=== PATIENT | female | born 1970 | race Two or more races ===

== ENCOUNTER 2017-03-22 19:10 | Emergency (ER) | payer SELFPAY ==
[~2017-03-22] VITALS: Ht 157.5 cm; Wt 63.5 kg
[~2017-03-22 19:10] MED LIST: BISA5TAB10 PO
[2017-03-22] MEDS ORDERED: DICYCLOMINE HCL 10 MG/5 ML UDC LIQ PO ONE (20:15)
[2017-03-22] MEDS ORDERED: PANTOPRAZOLE SODIUM 40 MG TABLET.DR PO ONE ×2 (20:15→20:35)
[2017-03-22] MEDS ORDERED: MAG HYDROX/AL HYDROX/SIMETH 30 ML LIQUID UDC PO ONE (20:15)
[2017-03-22] MEDS ORDERED: SIMETHICONE 80 MG TAB.CHEW PO ONE (20:15)
[2017-03-22] MEDS ORDERED: LIDOCAINE VISCUS 2% 15 ML UDC MM ONE (20:15)
[2017-03-22] MEDS ORDERED: MAG HYDROX/AL HYDROX/SIMETH 30 ML LIQUID UDC ONE (20:33)
[2017-03-22] MEDS ORDERED: DICYCLOMINE HCL 10 MG/5 ML UDC LIQ ONE (20:34)
[2017-03-22 20:36] LABS: BASOPHILS # (AUTO) 0.1 K/uL (0.0-8.0); BASOPHILS % (AUTO) 0.6 % (0.0-2.0); EOSINOPHILS # (AUTO) 0.1 K/uL (0.0-0.7); EOSINOPHILS % (AUTO) 1.1 % (0.0-7.0); HEMATOCRIT 39.5 % (37-47); HEMOGLOBIN 13.4 G/DL (12.0-16.0); LYMPHOCYTES # (AUTO) 2.8 K/UL (0.8-4.8); MEAN CORPUSCULAR HEMOGLOBIN 29.6 UUG (27.0-31.0); MEAN CORPUSCULAR HGB CONC 34 g/dL (32.0-37.0); MEAN CORPUSCULAR VOLUME 86.7 FL (81.0-99.0); MONOCYTES # (AUTO) 0.7 K/UL (0.1-1.30); MONOCYTES % (AUTO) 6.6 % (0.0-11.0); NEUTROPHILS # (AUTO) 6.3 K/UL (1.8-8.9); NEUTROPHILS % (AUTO) 63.7 % (38.5-71.5); PLATELET COUNT (AUTO) 286 K/UL (150-450); RED BLOOD CELL COUNT(AUTO) 4.55 MIL/UL (4.2-5.4)
[2017-03-22] MEDS ORDERED: SIMETHICONE 80 MG TAB.CHEW ONE ×2 (20:36→20:38)
[2017-03-22] MEDS ORDERED: LIDOCAINE VISCUS 2% 15 ML UDC ONE (20:38)
[2017-03-22 20:44] LABS: CREATININE 0.9 mg/dL (0.6-1.3)
[2017-03-22 20:51] LABS: POTASSIUM 2.9 mmol/L (3.5-5.1)
[2017-03-22 20:58] LABS: BILIRUBIN,DIRECT 0.1 mg/dL (0.0-0.2); BILIRUBIN,TOTAL 0.3 mg/dL (0.2-1.0); TOTAL PROTEIN, SERUM 6.9 g/dL (6.4-8.2)
[2017-03-22] MEDS ORDERED: POTASSIUM CHLORIDE 20 MEQ TAB.PRT.SR PO ONE (21:45)
[2017-03-22] MEDS ORDERED: POTASSIUM CHLORIDE 20 MEQ TAB.PRT.SR ONE (22:01)
--- NOTE | 2017-03-22 22:42 | NUR ---
pt voices understanding of aftercare instructions - pt ambulates uneventfully with family driving pt home pt in good spirits
[2017-03-22 22:45] VITALS: BP 123/83
== END 2017-03-22 22:48 | disposition home or self-care (01) ==
LOC: ER 19:11
DX: G89.29 Other chronic pain (principal); K80.20 Calculus of gallbladder without cholecystitis without obstruction; R10.13 Epigastric pain
CPT/HCPCS: 36415; 76705; 80048; 80076; 83690; 84484; 84703; 85025; 93005; 99285; A4663; 70030-TC

== ENCOUNTER 2018-12-30 12:31 | Emergency (ER) | payer MEDICAID, OTHER ==
[~2018-12-30] VITALS: Ht 157.5 cm; Wt 70.8 kg
[2018-12-30] MEDS ORDERED: HYDROMORPHONE 1 MG/1 ML DISP.SYRIN ONE (12:55)
[2018-12-30] MEDS ORDERED: ONDANSETRON 4 MG/2 ML VIAL ONE (12:55)
[2018-12-30] MEDS ORDERED: ONDANSETRON 4 MG/2 ML VIAL IM ONE (13:00)
[2018-12-30] MEDS ORDERED: HYDROMORPHONE 1 MG/1 ML DISP.SYRIN IM ONE (13:00)
[2018-12-30 13:04] LABS: BASOPHILS # (AUTO) 0.1 K/uL (0.0-8.0); EOSINOPHILS # (AUTO) 0.1 K/uL (0.0-0.7); LYMPHOCYTES # (AUTO) 3.9 K/uL (20.0-40.0); MONOCYTES # (AUTO) 0.6 K/uL (2.0-10.0)
[2018-12-30 13:04] LABS: *COLOR,URINE DARK YELLOW (YELLOW); *KETONES,URINE 1+ (NEGATIVE); *UROBILINOGEN,URINE 0.2 E.U./dl (NORMAL); LEUKOCYTE ESTERASE ,URINE NEGATIVE (NEGATIVE); NITRITE, URINE NEGATIVE (NEGATIVE); UGLUCOSE NEGATIVE (NEGATIVE)
[2018-12-30 13:07] LABS: *BILIRUBIN,URIN 2+ (NEGATIVE); *BLOOD, URINE TRACE (NEGATIVE); *CLARITY,URINE HAZY (CLEAR)
[2018-12-30 13:08] LABS: BASOPHILS % (AUTO) 1.1 % (0.0-2.0); EOSINOPHILS % (AUTO) 0.8 % (0.0-7.0); HEMATOCRIT 46.1 % (31.2-41.9); HEMOGLOBIN 15.8 g/dL (10.9-14.3); LYMPHOCYTES % (AUTO) 38.3 % (20.5-51.5); MEAN CORPUSCULAR HEMOGLOBIN 29.7 uug (24.7-32.8); MEAN CORPUSCULAR HGB CONC 34 g/dL (32.3-35.6); MEAN CORPUSCULAR VOLUME 86.7 fL (75.5-95.3); MONOCYTES % (AUTO) 5.8 % (0.0-11.0); NEUTROPHILS # (AUTO) 5.4 K/uL (1.8-8.9); PLATELET COUNT (AUTO) 280 K/uL (179-408); RED BLOOD CELL COUNT(AUTO) 5.32 MIL/uL (3.63-4.92); WHITE BLOOD COUNT (AUTO) 10.1 K/uL (3.8-11.8)
[2018-12-30 13:10] LABS: POTASSIUM 4.3 mmol/L (3.5-5.1)
[2018-12-30 13:17] LABS: BACTERIA,URINE NONE SEEN /HPF (NONE SEEN); CALCIUM OXALATE CRYSTALS,UR FEW /HPF (NONE SEEN); SQUAMOUS EPITHELIAL CELL,UR MANY /HPF (NONE SEEN); WBC,URINE 0-3 /HPF (0-3)
[2018-12-30 13:18] LABS: MUCUS,URINE FEW /LPF (0-FEW)
[2018-12-30 13:22] LABS: BILIRUBIN,TOTAL 0.3 mg/dL (0.2-1.0); TOTAL PROTEIN, SERUM 8.6 g/dL (6.4-8.2)
--- NOTE | 2018-12-30 14:08 | NUR ---
Patient discharged to home in stable conditon with family. Written and verbal after care instructions given. Patient and family verbalizes understanding of instructions. Stressed follow up with pmd.
[2018-12-30 14:09] VITALS: BP 109/77
== END 2018-12-30 14:10 | disposition home or self-care (01) ==
LOC: ER 12:33
DX: M54.5 Low back pain (principal); Z79.899 Other long term (current) drug therapy
CPT/HCPCS: 36415; 72100; 74176; 80053; 81000; 81001; 85025; 96372 ×2; 99284; J1170; J2405; A4663